=== PATIENT | male | born 1990 | race Caucasian/White ===

== ENCOUNTER 2024-12-14 01:56 | Emergency (ER) | payer MEDICAID ==
[~2024-12-14] VITALS: Ht 182.9 cm; Wt 88.5 kg
[2024-12-14] MEDS ORDERED: ALBU18HF2 INH (02:30)
[2024-12-14] MEDS ORDERED: PRED50TA PO (02:31)
[2024-12-14 02:40] LABS: PLATELET COUNT (AUTO) 259 K/uL (150-450); RED BLOOD CELL COUNT(AUTO) 4.70 MIL/uL (4.5-6.0); RED CELL DISTRIBUTION WIDTH 13.2 % (11.5-15.0); WHITE BLOOD COUNT (AUTO) 4.7 K/uL (4.3-11.0)
[2024-12-14] MEDS ORDERED: IPRATROPIUM NEB FS 0.5 MG/2.5 ML AMPUL.NEB ONE (02:48)
[2024-12-14] MEDS ORDERED: ALBUTEROL FS 2.5 MG/3 ML VIAL.NEB ONE (02:48)
[2024-12-14] MEDS: ALBUTEROL FS 2.5 MG/3 ML VIAL.NEB NEB ONE (02:54)
[2024-12-14] MEDS: IPRATROPIUM NEB FS 0.5 MG/2.5 ML AMPUL.NEB NEB ONE (02:54)
[2024-12-14 02:55] VITALS: O2SAT 99
[2024-12-14 03:00] LABS: CALCIUM, SERUM 8.9 mg/dL (8.5-10.1); CREATININE 1.3 mg/dL (0.6-1.3); SODIUM SERUM 139 mmol/L (136-145); UREA NITROGEN, BLOOD 18 mg/dL (7-18)
[2024-12-14 03:06] LABS: ASPARTATE AMINOTRANSFERASE 27 U/L (15-37); TOTAL PROTEIN, SERUM 6.7 g/dL (6.4-8.2)
[2024-12-14 03:12] VITALS: O2SAT 99
[2024-12-14 03:37] VITALS: BP 125/71; TEMP 97.5; O2SAT 99
== END 2024-12-14 03:38 | disposition home or self-care (01) ==
LOC: ER 02:01
DX: J45.909 Unspecified asthma, uncomplicated (principal); R06.82 Tachypnea, not elsewhere classified; R07.89 Other chest pain; Z79.52 Long term (current) use of systemic steroids; Z60.2 Problems related to living alone; Z98.890 Other specified postprocedural states
CPT/HCPCS: 99285; 71045; 84145; 85025; 83735; 36415; 80053; 86140; 94640; J7512